=== PATIENT | male | born 1945 | race Caucasian/White ===

== ENCOUNTER 2024-11-26 09:00 | Emergency (ER) | payer MEDICARE, SELFPAY ==
[2024-11-26] VITALS (18 sets, daily range): BP systolic 99–116; BP diastolic 68–88; PULSE 91; TEMP 36.6; O2SAT 86–100; BMI 25.8
[2024-11-26 09:42] LABS: Basophils Percent Auto 0.7 % (0.2-2.0); Eosinophils Absolute Auto 0.1 10^3/uL (0.0-0.7); Eosinophils Percent Auto 2.4 % (0.9-7.0); Hematocrit 27.9 % (42.0-54.0); Hemoglobin 9.1 g/dL (14.0-18.0); Immature Granulocytes Abs Auto 0.01 10^3/uL (0.00-0.03); Immature Granulocytes Pct Auto 0.2 % (0.0-0.5); Lymphocytes Percent Auto 22.9 % (20.5-60.0); Mean Corpuscular HGB Conc 32.6 g/dL (29.9-35.2); Mean Corpuscular Hemoglobin 32.6 pg (25.9-34.0); Mean Platelet Volume 9.6 fL (9.5-13.5); Monocytes Absolute Auto 0.3 10^3/uL (0.3-0.8); Monocytes Percent Auto 7.6 % (1.7-12.0); Neutrophils Percent Auto 66.2 % (43.0-75.0); Platelet Count 183 10^3/uL (150-450); Red Blood Count 2.79 10^6/uL (4.70-6.10); Red Cell Distribution Width 14.9 % (11.0-15.0); White Blood Count 4.5 10^3/uL (4.0-11.0)
[2024-11-26] MEDS: MORPHINE SULFATE 2 MG/ML SYRINGE IV (09:43)
[2024-11-26 09:52] LABS: BUN Creatinine Ratio 5.3; Calcium 8.5 mg/dL (8.5-10.1); Carbon Dioxide 26.4 mmol/L (21.0-32.0); Chloride 112 mmol/L (98-107); Estimated GFR (African America >60 (>=60 mL/min/1.73m^2); Estimated GFR (Non-African Ame >60 (>=60 mL/min/1.73m^2); Glucose 91 mg/dL (74-106); Potassium 4.4 mmol/L (3.5-5.1); Sodium 147 mmol/L (136-145)
--- NOTE | 2024-11-26 11:03 | ED_ITS ---
HPI HPI - General Adult General Chief complaint: Urogenital-Male Stated complaint: WEAKNESS Time Seen by Provider: 11/26/24 09:17 Source: patient, medical record and other Source information: ems Mode of arrival: ambulance Limitations: no limitations History of Present Illness HPI narrative: 79-year-old male presents to the emergency department because his right ne phrostomy tube was pulled out. He is unable to provide us any history, he has dementia. He comes in from [facility] and it appears to have come out last night. He also has a right nephrostomy tube which has not been draining since yesterday. No further history is obtainable. Related Data Allergies Allergy/AdvReac Type Severity Reaction Status Date / Time No Known Drug Allergies Allergy Verified 11/26/24 09:02 Opioid HPI Opioid Management Most Recent Opioid Data: No Data to Display Review of Systems ROS Narrative Not obtainable, dementia PFSH PFSH Social History Little interest or pleasure in doing things: not at all Feeling down, depressed, or hopeless: not at all Exam Narrative Exam Narrative: Nurses note and vital signs reviewed and patient is not hypoxic. General: The patient appears in no apparent distress. Patient is resting comfortably on cart. Skin: Warm, dry, no pallor noted. There is no rash noted. Head: Normocephalic, atraumatic Eye: Normal conjunctiva, no drainage Ears, Nose, Mouth, and Throat: oral mucosa is moist. Nares patent. Cardiovascular: Regular Rate and Rhythm Respiratory: Patient is in no distress, no accessory muscle use, lungs are clear to auscultation, no wheezing, rales or rhonchi Back: There is a nephrostomy tube on the right side. There is a dressing but no tube on the left side. GI: Soft and nontender Musculoskeletal: The patient has no evidence of calf tenderness, no pitting edema, symmetrical pulses noted bilaterally Neurological: Awake and alert. He knows his name but does not know where he is or what year it is or why he is here Psychiatric: Cooperative Constitutional Vital Signs, click to edit/add: Last Vital Signs Temp 98 F 11/26/24 09:02 Pulse 91 H 11/26/24 09:02 Resp 18 11/26/24 09:02 BP 114/74 11/26/24 11:31 Pulse Ox 98 11/26/24 11:40 O2 Del Method Room Air 11/26/24 09:02 Course Vital Signs Vital signs: Vital Signs Temperature 98 F 11/26/24 09:02 Pulse Rate 91 H 11/26/24 09:02 Respiratory Rate 18 11/26/24 09:02 Blood Pressure 99/74 11/26/24 09:02 Pulse Oximetry 100 11/26/24 09:02 Oxygen Delivery Method Room Air 11/26/24 09:02 Temperature 98 F 11/26/24 09:02 Pulse Rate 91 H 11/26/24 09:02 Respiratory Rate 18 11/26/24 09:02 Blood Pressure 114/74 11/26/24 11:31 Pulse Oximetry 98 11/26/24 11:40 Oxygen Delivery Method Room Air 11/26/24 09:02 Medical Decision Making MDM Narrative Medical decision making narrative: He has a displaced left nephrostomy tube. The right nephrostomy tube appears to be in place but it does not seem to be draining urine. I have spoken to Kalli Brunson NP, at [facility] and she accepts the patient. He is stable for transfer. He will require new left nephrostomy tube and possibly on the right as well. Differential Diagnosis Differential Diagnosis: Nephrostomy tube displacement Lab Data Lab results reviewed: Yes I reviewed the patient's lab results Labs: Lab Results 11/26/24 Range/Units 09:37 WBC 4.5 (4.0-11.0) 10^3/uL RBC 2.79 L (4.70-6.10) 10^6/uL Hgb 9.1 L (14.0-18.0) g/dL Hct 27.9 L (42.0-54.0) % MCV 100.0 H (80.0-94.0) fL MCH 32.6 (25.9-34.0) pg MCHC 32.6 (29.9-35.2) g/dL RDW 14.9 (11.0-15.0) % Plt Count 183 (150-450) 10^3/uL MPV 9.6 (9.5-13.5) fL Neut % (Auto) 66.2 (43.0-75.0) % Lymph % (Auto) 22.9 (20.5-60.0) % [place] % (Auto) 7.6 (1.7-12.0) % Eos % (Auto) 2.4 (0.9-7.0) % Baso % (Auto) 0.7 (0.2-2.0) % Neut # (Auto) 3.0 (1.4-6.5) 10^3/uL Lymph # (Auto) 1.0 L (1.2-3.8) 10^3/uL [place] # (Auto) 0.3 (0.3-0.8) 10^3/uL Eos # (Auto) 0.1 (0.0-0.7) 10^3/uL Baso # (Auto) 0.0 (0.0-0.1) 10^3/uL Abs Immat Gran (auto) 0.01 (0.00-0.03) 10^3/uL Imm/Tot Granulo (auto) 0.2 (0.0-0.5) % Sodium 147 H (136-145) mmol/L Potassium 4.4 (3.5-5.1) mmol/L Chloride 112 H (98-107) mmol/L Carbon Dioxide 26.4 (21.0-32.0) mmol/L Anion Gap 13.0 BUN 6.0 L (7.0-18.0) mg/dL Creatinine 1.14 (0.70-1.30) mg/dL Est GFR ( Amer) >60 (>=60 mL/min/1.73m^2) Est GFR (Non-Af Amer) >60 (>=60 mL/min/1.73m^2) BUN/Creatinine Ratio 5.3 Glucose 91 (74-106) mg/dL Calcium 8.5 (8.5-10.1) mg/dL Imaging Data Abdominal x-ray: Radiologist's impression: KUB per radiologist shows tip of nephrostomy tube over the right kidney Discharge Plan Discharge Chief Complaint: Urogenital-Male Clinical Impression: Displacement of nephrostomy tube Patient Disposition: [facility] Time of Disposition Decision: 11:59 Discharge Location: [facility] Condition: Fair Mode of Transportation: EMS
--- NOTE | 2024-11-26 11:44 | PC.NURSE ---
pt is supposed to have MARIANNA nephrostomy -- L one fell out last night during sleep. R one still intact but not producing a lot of urine. urine in bag (approx 10ml) dark cloudy. pt has just recently been admitted to [place] in [facility] after being in [place] [facility] for septic shock and hydronephrosis
--- NOTE | 2024-11-26 12:39 | PC.NURSE ---
attempted to call daughter to give her an update on a plan of care -- but no answer. did leave voicemail.
== END 2024-11-26 13:40 | disposition short-term general hospital (02) ==
PROVIDERS: Emergency Provider Emergency Medicine
DX: T83.022A Displacement of nephrostomy catheter, initial encounter (principal); F03.90 Unspecified dementia, unspecified severity, without behavioral disturbance, psychotic disturbance, mood disturbance, and anxiety
CPT/HCPCS: 36415; 74018; 74019; 80048; 85025; 96374; 99285; J2270